=== PATIENT | female | born 1945 | race Caucasian/White ===

== ENCOUNTER 2018-02-17 21:16 | Observation (INO) | payer OTHER ==
[~2018-02-17] VITALS: Ht 157.5 cm; Wt 66.8 kg
[2018-02-17 22:13] LABS: BASOPHIL % 0.4 % (0-2); PLATELET COUNT 383 x10^3mcL (130-400); RED CELL DISTRIBUTION WIDTH 12.9 % (11.5-14.5)
[2018-02-17 22:23] LABS: microscopic required? NO
[2018-02-17 22:25] LABS: CALCIUM 10.2 mg/dL (8.5-10.1); CARBON DIOXIDE 26.1 mmol/L (21-32); CHLORIDE SERUM 102 mmol/L (98-107); CREATININE SERUM 0.9 mg/dL (0.6-1.0); GLUCOSE SERUM 102 mg/dL (74-106); POTASSIUM SERUM 3.4 mmol/L (3.5-5.1); SODIUM SERUM 140 mmol/L (136-145)
[2018-02-17 22:29] LABS: ALBUMIN 4.9 g/dL (3.4-5.0); ALKALINE PHOSPHATASE 65 U/L (46-116); ALT/SGPT 32 U/L (14-59); AST/SGOT 23 U/L (15-37); BILIRUBIN TOTAL 0.61 mg/dL (0.20-1.00)
[2018-02-17 22:32] LABS: TOTAL PROTEIN, SERUM 8.5 g/dL (6.4-8.2)
[2018-02-17 22:46] LABS: UA SPECIFIC GRAVITY <=1.005 (1.005-1.035); urine erythrocyte NEGATIVE (NEGATIVE)
[2018-02-17 22:50] LABS: CK-MB 0.9 ng/mL (0-3.6)
[2018-02-17] MEDS ORDERED: LORAZEPAM1 MG (23:17)
[2018-02-17] MEDS ORDERED: SINGULAIR10 MG PO (23:18)
[2018-02-17] MEDS ORDERED: LIPITOR40 MG PO (23:18)
[2018-02-17] MEDS ORDERED: NOR5 PO (23:19)
[2018-02-17] MEDS ORDERED: HYD500 PO (23:19)
[2018-02-17] MEDS ORDERED: ASPIR 8181 MG PO (23:19)
[2018-02-17 23:44] LABS: CHOLESTEROL/HDL RATIO 2.8; MAGNESIUM 2.2 mg/dL (1.8-2.4)
[2018-02-17 23:46] LABS: AMPHETAMINE QUAL UR NONE DETECTED (See below)
[2018-02-18] VITALS (7 sets, daily range): BP systolic 119–146; BP diastolic 52–74; Ht 157.5 cm; Wt 66.8 kg
[2018-02-18 06:03] LABS: BASOPHIL % 0.3 % (0-2); PLATELET COUNT 302 x10^3mcL (130-400); RED CELL DISTRIBUTION WIDTH 12.7 % (11.5-14.5)
[2018-02-18 06:06] LABS: CALCIUM 8.5 mg/dL (8.5-10.1); CARBON DIOXIDE 28.4 mmol/L (21-32); CHLORIDE SERUM 106 mmol/L (98-107); CREATININE SERUM 0.8 mg/dL (0.6-1.0); GLUCOSE SERUM 90 mg/dL (74-106); POTASSIUM SERUM 4.2 mmol/L (3.5-5.1); SODIUM SERUM 140 mmol/L (136-145)
[2018-02-19 05:33] VITALS: BP 105/54
[2018-02-19 08:44] VITALS: BP 115/43
[2018-02-19 09:07] VITALS: BP 111/58
[2018-02-19 10:09] VITALS: BP 111/58
== END 2018-02-19 10:45 | disposition home or self-care (01) | DRG 189 ==
LOC: ED 21:16 → DU 23:13
PROVIDERS: Emergency Medicine; Internal Medicine
DX: J96.00 Acute respiratory failure, unspecified whether with hypoxia or hypercapnia (principal); J44.1 Chronic obstructive pulmonary disease with (acute) exacerbation; I25.10 Atherosclerotic heart disease of native coronary artery without angina pectoris; I10 Essential (primary) hypertension; E03.9 Hypothyroidism, unspecified; E78.5 Hyperlipidemia, unspecified; F41.9 Anxiety disorder, unspecified; Z68.29 Body mass index [BMI] 29.0-29.9, adult; Z88.0 Allergy status to penicillin; Z85.6 Personal history of leukemia; Z63.6 Dependent relative needing care at home; Z79.82 Long term (current) use of aspirin
CPT/HCPCS: 36600; 83880; 85378; A9500; G0378; J2785; J7620; Q0092; Q9967